=== PATIENT | female | born 1945 | race Caucasian/White ===

== ENCOUNTER 2021-04-24 21:41 | Day surgery (SDCO) | payer OTHER ==
[~2021-04-24] VITALS: Ht 175.3 cm; Wt 72.7 kg
[2021-04-25 03:13] LABS: BASOPHIL 0.4 % (0-2); EOSINOPHIL 1.3 % (0-7); HCT 38.4 % (37.0-47.0); HGB 12.6 g/dl (12.5-16.0); MCH 28.8 pg (25.0-31.0); MCHC 32.8 g/dL (32.0-36.0); MCV 87.9 fL (78.0-100.0); NEUTROPHIL 75.8 % (41-80); NRBC 0; PLT 267 K/uL (150-400); RBC 4.37 M/uL (4.20-5.40); RDW 13.2 % (11.5-14.0); WBC 11.8 K/uL (4.0-10.5)
[2021-04-25 03:21] LABS: INR 1.03 (0.9-1.2); PROTHROMBIN TIME 12.9 SECONDS (11.8-13.4)
[2021-04-25 03:29] LABS: ALBUMIN 4.1 g/dL (3.4-5.0); BILIRUBIN - TOTAL 0.6 mg/dL (0.2-1.0); BUN/CREAT RATIO (CALC) 22.8 RATIO; CREATININE 0.79 mg/dL (0.51-0.95); GLOBULIN (CALCULATION) 3.9 g/dL; POTASSIUM 4.6 mmol/L (3.5-5.1)
[2021-04-25] MEDS ORDERED: LISINOPRIL10 MG PO (06:41)
[2021-04-25] MEDS ORDERED: CARVEDILOL12.5 MG PO (06:41)
[2021-04-25] MEDS ORDERED: SIMVASTATIN40 MG PO (06:43)
[2021-04-25] MEDS ORDERED: METFORMIN HCL500 M3 PO (06:43)
[2021-04-26] MEDS ORDERED: NORCO 5-325 TA1 EACH PO (08:49)
== END 2021-04-26 11:25 | disposition home or self-care (01) ==
LOC: FER 21:41 → FMS 04-25 04:29
PROVIDERS: Emergency Medicine; ADMIT Internal Medicine
DX: S06.5X0A Traumatic subdural hemorrhage without loss of consciousness, initial encounter (principal); S02.2XXA Fracture of nasal bones, initial encounter for closed fracture; I10 Essential (primary) hypertension; E11.9 Type 2 diabetes mellitus without complications; Z79.84 Long term (current) use of oral hypoglycemic drugs; Z79.899 Other long term (current) drug therapy; Z20.822 Contact with and (suspected) exposure to COVID-19; W01.198A Fall on same level from slipping, tripping and stumbling with subsequent striking against other object, initial encounter
CPT/HCPCS: 36415; 70450; 70486; 72125; 80053; 82962; 85025; 85610; G0378; U0002